=== PATIENT | female | born 1940 | race Caucasian/White ===

== ENCOUNTER 2020-09-04 10:42 | Day surgery (SDC) | payer OTHER ==
[~2020-09-04] VITALS: Ht 154.9 cm; Wt 59.1 kg
[2020-09-04 11:39] LABS: CALC OSMOLALITY 277 mosm/kg (275-300); CALCIUM 9.3 mg/dL (8.5-10.1); CARBON DIOXIDE 28.7 mmol/L (21.0-32.0); CHLORIDE - SERUM 104 mmol/L (98-107); CREATININE - SERUM 0.4 mg/dL (0.6-1.3); GLUCOSE 103 mg/dL (74-106); POTASSIUM - SERUM 4.1 mmol/L (3.5-5.1); SODIUM 139 mmol/L (136-145); UREA NITROGEN 13 mg/dL (7-18); eGFR NON AFRICAN AMERICAN > 90 mL/min (90-120)
[2020-09-04 11:52] LABS: HEMOGLOBIN 14.1 g/dL (12-16); MCH 29.3 pg (26.0-34.0); MCHC 33.6 g/dL (31.0-37.0); MCV 87.3 fL (80.0-100.0); MEAN PLATELET VOLUME 10.4 fL (7.4-10.4); RBC 4.81 10x6/uL (4.00-5.40); RDW 13.1 % (11.5-14.5); WBC 4.7 10x3/uL (4.8-10.8)
[2020-09-04 12:28] VITALS: BP 130/72; Ht 154.9 cm; Wt 59.1 kg
--- NOTE | 2020-09-05 17:42 | HP ---
PATIENT: JESIKA GRACE MEDICAL RECORD: [id number] ACCOUNT: [id number] LOCATION:EM : 40 ADMISSION DATE: 09/04/20 PCP: SOUMYA BURNS MD HISTORY AND PHYSICAL EXAMINATION CHIEF COMPLAINT: Abdominal pain. HISTORY OF PRESENT ILLNESS: The patient has been having right upper quadrant abdominal pain, which generally occurs at night. She has had a prior cholecystectomy. 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 A hiatal hernia was fixed at the same time. She is to undergo upper endoscopy today. ALLERGIES: No known drug allergies. HOME MEDICATIONS: Please see the nursing list. PAST MEDICAL AND SURGICAL HISTORY: Lung nodules, gastroesophageal reflux, dyspnea, history of appendectomy, history of cholecystectomy, history of hysterectomy, history of tonsillectomy. SOCIAL HISTORY: Nonsmoker. HOME MEDICATIONS: She is on no medicines. ALLERGIES: No known drug allergies. PHYSICAL EXAMINATION: GENERAL: The patient does not appear acutely ill. She does not appear chronically ill. VITAL SIGNS: Reviewed. EARS: External ears appear normal. EYES: Extraocular movements are intact. NECK: Trachea is midline. CHEST: No intercostal retractions. PULMONARY: Nonlabored. No stridor. ABDOMEN: Slight tenderness in the right upper quadrant without guarding or peritonitis. The entire physical examination was performed in the presence of a female nurse. IMPRESSION: Right upper quadrant pain of uncertain etiology. PLAN: Plan will be upper endoscopy. TRANSINT:[id number] Voice Confirmation ID: [id number] DOCUMENT ID: [id number] HISTORY AND PHYSICAL [id number] LESLYJESIKA LILLIE SUTTON MD at 1742 CC: SOUMYA BURNS [id number] DICTATION DATE: 09/04/20 1605 HEALTHCARE OR MEDICAL: 09/04/20 1739 [facility] 09/04/20 [place] [id number] [place] [id number]
--- NOTE | 2020-09-06 10:54 | OP ---
PATIENT NAME: JESIKA GRACE MEDICAL RECORD: [id number] :40 LOCATION:D.OPS ADMISSION DATE: SURGEON: LILLIE DUEÑAS MD DATE OF OPERATION: 09/04/2020 PREOPERATIVE DIAGNOSES: 1. Right upper quadrant abdominal pain. 2. History of gastric bypass. POSTOPERATIVE DIAGNOSES: 1. Right upper quadrant abdominal pain. 2. History of gastric bypass. 3. Anastomotic ulcer, bleeding. 4. Schatzki's ring. PROCEDURES: 1. Esophagogastrojejunoscopy with gastric biopsies to rule out H. pylori. 2. Balloon dilation of the esophagus to 54-[place] with distal esophageal biopsies. SURGEON: Lillie Dueñas MD STUDIO OPERATOR: None. BLOOD LOSS: Less than 10 cc. ANESTHESIA: IV sedation. COMPLICATIONS: None. The risks, possible complications, and alternatives to the procedure were explained to the patient. She elects to proceed. ENDOSCOPIC COURSE: The patient was conveyed to endoscopy suite electively on 09/04/2020. IV sedation was induced by the anesthesia staff. A bite block was inserted. A gastroscope was inserted into the mouth. It was advanced easily into the hypopharynx. The esophagus was easily intubated as was the gastric remnant and the jejunal limb. The jejunum appeared normal. There was an anastomotic ulcer with white exudate that was acutely bleeding and this was located on the medial aspect of the gastrojejunal anastomosis. After gastric biopsies have been obtained, I withdrew up into the esophagus. I advanced a gtsizcn-sqp-bsmohylc balloon. I then sequentially dilated the esophagus to 54-[place] including the Schatzki's ring. Biopsies of the ring and biopsies of the esophagogastric junction were performed. These were cold endoscopic biopsies. The endoscope was then withdrawn under direct vision. The patient was conveyed back to her room. I reviewed with her and her the endoscopic photos. I am going to place her on Nexium as well as Carafate. I will see her in the office in 2-3 weeks. I am going to plan that after the ulcer is healed that she will remain on an H2 blaze for the rest of her life. TRANSINT:[id number] Voice Confirmation ID: [id number] DOCUMENT ID: [id number] OPERATIVE REPORT [id number] LESLYASIMJESIKA LILLIE SUTTON MD at 1054 CC: SOUMYA BURNS [id number] DICTATION DATE: 09/05/20 1832 STARS COORDINATOR: 09/06/20 0521 [facility] 09/04/20 [place] [id number] [place] [id number]
== END 2020-09-04 17:40 | disposition home or self-care (01) ==
LOC: D.OPS 10:42
PROVIDERS: Anesthesiology; ATTEND Surgery
DX: R10.11 Right upper quadrant pain (principal); K28.4 Chronic or unspecified gastrojejunal ulcer with hemorrhage; K22.2 Esophageal obstruction; K59.00 Constipation, unspecified; K21.9 Gastro-esophageal reflux disease without esophagitis

== ENCOUNTER 2021-01-29 07:27 | Day surgery (SDC) | payer OTHER ==
[~2021-01-29] VITALS: Ht 154.9 cm; Wt 57.3 kg
[2021-01-29 08:09] LABS: CALC OSMOLALITY 285 mosm/kg (275-300); CALCIUM 8.8 mg/dL (8.5-10.1); CARBON DIOXIDE 29.7 mmol/L (21.0-32.0); CHLORIDE - SERUM 108 mmol/L (98-107); CREATININE - SERUM 0.6 mg/dL (0.6-1.3); GLUCOSE 101 mg/dL (74-106); POTASSIUM - SERUM 3.3 mmol/L (3.5-5.1); SODIUM 144 mmol/L (136-145); UREA NITROGEN 10 mg/dL (7-18); eGFR NON AFRICAN AMERICAN > 90 mL/min (90-120)
[2021-01-29 08:19] LABS: BASOPHILS 0.2 % (0-2); HEMATOCRIT 38.7 % (36.0-48.0); HEMOGLOBIN 12.6 g/dL (12-16); LYMPHOCYTE ABS# 0.99 10x3/uL (1.18-3.74); LYMPHOCYTES 22.4 % (15-50); MCH 28.1 pg (26.0-34.0); MCHC 32.6 g/dL (31.0-37.0); MCV 86.2 fL (80.0-100.0); MEAN PLATELET VOLUME 9.8 fL (7.4-10.4); MONOCYTES 8.6 % (2-11); NEUTROPHIL ABS# 2.94 10x3/uL (1.56-6.13); NEUTROPHILS 66.8 % (40-80); PLATELET COUNT 222 10x3/uL (130-400); RBC 4.49 10x6/uL (4.00-5.40); RDW 13.7 % (11.5-14.5); WBC 4.4 10x3/uL (4.8-10.8)
[2021-01-29] MEDS ORDERED: VITAMIN D-32000 UNIT PO (08:36)
[2021-01-29] MEDS ORDERED: NEXIUM40 MG PO (08:36)
[2021-01-29] MEDS ORDERED: PEPCID40 MG PO (08:36)
[2021-01-29] MEDS ORDERED: LIBRIUM5 MG PO (08:37)
[2021-01-29] MEDS ORDERED: OMEPRAZOLE40 MG PO (08:38)
[2021-01-29 08:43] VITALS: BP 142/79; Ht 154.9 cm; Wt 57.3 kg
--- NOTE | 2021-01-29 10:28 | NUR ---
1016 DR. DUEÑAS, Laurie DAVIS R.N., & Mike SWARTZ R.N. @ BEDSIDE FOR POSTPROCEDURE ROUNDS. PT GRIMACING. WHEN ASKED WHAT IS WRONG, PT REPLIED I DON'T FEEL GOOD. PT HOLDING 'S HAND. PT ASKED TO OPEN HER EYES. ONLY OPENS EYES SLIGHTLY. DR. DUEÑAS STATES HE WILL RETURN TO GO OVER RESULTS LATER WHEN PATIENT IS MORE ALERT. Mike SWARTZ R.N.
--- NOTE | 2021-01-29 11:10 | NUR ---
DISCHARGE INSTRUCTIONS REVIEWED WITH PATIENT AND SPOUSE, DISCHARGED HOME VIA WHEELCHAIR TO PRIVATE VEHICLE WITH SPOUSE. PATIENT WALKING AROUND ROOM AND OUT INTO HALLWAY INDEPENDENTLY WITHOUT UNSTEADINESS OR DIZZINESS
--- NOTE | 2021-01-29 16:21 | HP ---
PATIENT: JESIKA GRACE MEDICAL RECORD: [id number] ACCOUNT: [id number] LOCATION:EM : 40 ADMISSION DATE: 01/29/21 PCP: SOUMYA SINGH MD HISTORY AND PHYSICAL EXAMINATION HISTORY OF PRESENT ILLNESS: This is a very challenging patient. When I last performed endoscopy on her, post-endoscopy I asked her if she was taking her medications and she stated that she really did not like to take medications very much. I identified the prescribed medications she should have been taking. She still had a residual anastomotic ulcer. She later called administration expressing her dissatisfaction with my care, stating that I had not come to talk to her after the procedure. Indeed I had. She came to the office several times and I explained to her the endoscopic findings again. When she returned to the office the last time, I had 2 chaperones in the room that witnessed me explaining the operative findings to her. She has a list on the chart today of questions that she would like me to answer. I have answered these. She wanted to know what I found and I going to explain this to her and have her explained it back to me before she leaves the hospital today. She asked that she is going to get well and I stated, not if she does not take her medicines. She asked if she had cancer and of course, I do not know if she does. She said would I consider a PET scan and I said no and if she wants a PET scan I think she needs to see an oncologist or her primary care doctor, Dr. Singh. She wants me to speak to her in front of the hospital, in a vehicle about the results and states that he will not answer the phone. SOCIAL HISTORY: Nonsmoker. HOME MEDICINES: Librium, Nexium, omeprazole, Pepcid. PAST MEDICAL AND SURGICAL HISTORY: Anastomotic ulcer, history of gastric bypass, history of hysterectomy, laparoscopic cholecystectomy, appendectomy, varicose veins, chronic diarrhea, IBS. ALLERGIES: No known drug allergies. REVIEW OF SYSTEMS: Negative for CVA or seizures. PHYSICAL EXAMINATION: GENERAL: The patient does not appear acutely ill. She does not appear chronically ill. VITAL SIGNS: Reviewed. EARS: External ears appear normal. EYES: Extraocular movements are intact. NECK: Trachea is midline. CHEST: No intercostal retractions. PULMONARY: Nonlabored. No stridor. IMPRESSION: History of anastomotic ulcer. HISTORY AND PHYSICAL [id number] JESIKA GRACE PLAN: Plan will be esophagogastrojejunoscopy to check for clearing of the ulcer. TRANSINT:[id number] Voice Confirmation ID: [id number] DOCUMENT ID: [id number] LILLIE DUEÑAS MD at 1621 CC: [id number] DICTATION DATE: 01/29/21 0947 EFFICIENCY MINER: 01/29/21 1158 [facility] 01/29/[address] [address]
--- NOTE | 2021-01-29 16:21 | OP ---
PATIENT NAME: JESIKA GRACE MEDICAL RECORD: [id number] :40 LOCATION:D.[facility] ADMISSION DATE: SURGEON: AKBAR DUEÑAS MD DATE OF OPERATION: 01/29/2021 PRINCIPAL DIAGNOSIS: History of anastomotic ulcer. POSTOPERATIVE DIAGNOSIS: Complete healing of the gastrojejunal anastomotic ulcer. PROCEDURE: Esophagogastroduodenoscopy with gastric biopsies. SURGEON: Akbar Dueñas MD DISTRIBUTOR SALES CONSULTANT: None. BLOOD LOSS: Minimal. ANESTHESIA: IV sedation. The risks, possible complications and alternatives of the procedure were explained to the patient. She elects to proceed. ENDOSCOPIC COURSE: The patient was conveyed to endoscopy suite electively on 01/29/2021. IV sedation was induced by the anesthesia staff. A bite-block was inserted. A gastroscope was inserted into the mouth. It was advanced easily into the esophagus. The stomach was intubated. Both the afferent and efferent limbs of the jejunum were examined. There had been complete healing of the anastomotic ulcer. Cold endoscopic biopsies were obtained in the stomach. A retroflex view was obtained. I then unretroflexed the scope and removed it under direct vision. The patient was then conveyed back to her room. I went back to her room and was going to explain the endoscopic findings to her and her who did come in from their truck. Post procedurally, she was crying. I explained the entire procedure, it only took 7 minutes and she had her eyes closed. I asked if she can open her eyes and she shook her head that she could. I asked her to open her eyes and she would not and she continued to cry. I said that I would come back later. I came back later. I showed them the endoscopic photos. My entire conversation with them was in the presence of 2 nurses. I went over all of the endoscopic photos. I also, when speaking to her, had her repeat what I was saying so that there was no question about me telling her about the endoscopic findings. I told the patient to stay on Nexium and Pepcid for the rest of her life. She could have one Nexium in the morning and one Pepcid at night. I wrote down these instructions. She no longer needs to take the Carafate. My recommendation is that her next upper endoscopy to take place in 5 years. There was no need for her to follow up with me in the office. I will call her in a couple of weeks and tell her the results of the biopsies for H. pylori. I am also going to place her on Levsin and see how that goes. OPERATIVE REPORT [id number] LESLYJESIKA LEVIN She was complaining of right flank pain. She has point tenderness in the right flank. I had recommended before that they go see Dr. Tejeda for a trigger point injection. They have not done this. The patient had a number of questions that she wrote down and I answered all of these. She was very concerned that she may have cancer. I told her to see Dr. Singh regarding this and maybe he would order a CAT scan. She wanted a PET scan and I told her that this is a conversation she likely needs to have with Dr. Singh. She has a friend who recently of pancreatic cancer. I will see the patient on an as needed basis. They thanked me for the care they received as I was leaving the room. TRANSINT:[id number] Voice Confirmation ID: [id number] DOCUMENT ID: [id number] AKBAR DUEÑAS MD at 1621 CC: [id number] DICTATION DATE: 01/29/21 1154 FILM TECHNICIAN: 01/29/21 1522 [facility] 01/29/21 [facility] [address] [place] [address]
== END 2021-01-29 11:10 | disposition home or self-care (01) ==
LOC: D.OPS 07:27
PROVIDERS: Anesthesiology; ATTEND Surgery
DX: Z87.11 Personal history of peptic ulcer disease (principal); Z98.84 Bariatric surgery status; Z90.710 Acquired absence of both cervix and uterus; K58.0 Irritable bowel syndrome with diarrhea